=== PATIENT | female | born 1975 | race Caucasian/White ===

== ENCOUNTER → 2019-03-27 | Outpatient (CLI) | payer SELFPAY ==
[~2019-03-27] MED LIST: Bactrim Ds Tab1 EACH PO; CEPH500 PO; Cleocin HCl300 MG PO; HYDACE5 PO; Mupirocin22 GM TOP; NAPR500 PO; Pyridium100 MG PO; SULTRIDS PO; Ultram50 MG PO
== END ==
LOC: LAB 19:41 → LAB SHORT 19:41
DX: J02.9 Acute pharyngitis, unspecified (principal); R06.02 Shortness of breath
CPT/HCPCS: 87081

== ENCOUNTER 2021-10-15 22:48 | Emergency (ER) | payer OTHER ==
[~2021-10-15] VITALS: Ht 167.6 cm; Wt 68.0 kg
[~2021-10-15 22:48] MED LIST changes: +IBUP600 PO
[2021-10-17] MEDS ORDERED: Amoxicillin500 MG PO (14:45)
== END 2021-10-16 00:55 | disposition home or self-care (01) ==
LOC: ER 22:48
DX: S30.860A Insect bite (nonvenomous) of lower back and pelvis, initial encounter (principal); F17.200 Nicotine dependence, unspecified, uncomplicated; F15.11 Other stimulant abuse, in remission; W57.XXXA Bitten or stung by nonvenomous insect and other nonvenomous arthropods, initial encounter; Y92.9 Unspecified place or not applicable
CPT/HCPCS: 10120; 99282; A9270

== ENCOUNTER 2021-10-17 14:32 | Emergency (ER) | payer OTHER ==
[~2021-10-17] VITALS: Ht 170.2 cm; Wt 65.8 kg
[2021-10-17] MEDS ORDERED: Amoxicillin500 MG PO (14:45)
== END 2021-10-17 14:48 | disposition home or self-care (01) ==
LOC: ER 14:32
DX: K04.7 Periapical abscess without sinus (principal); F17.200 Nicotine dependence, unspecified, uncomplicated; Z79.899 Other long term (current) drug therapy
CPT/HCPCS: 99282

== ENCOUNTER 2022-08-05 07:51 | Emergency (ER) | payer OTHER ==
[~2022-08-05] VITALS: Ht 162.6 cm; Wt 69.4 kg
[~2022-08-05 07:51] MED LIST changes: +Amoxicillin500 MG PO
[2022-08-05 08:37] LABS: BASOPHILS ABSOLUTE AUTO 0.13 K/mm3 (0.00-0.23); BASOPHILS PERCENT AUTO 1 % (0-2); EOSINOPHILS PERCENT AUTO 8 % (0-6); Hematocrit 48.2 % (33.0-51.0); Hemoglobin 15.6 g/dL (11.5-16.0); IMMATURE GRAN ABSOLUTE AUTO 0.04 K/mm3 (0.00-0.10); IMMATURE GRAN PERCENT AUTO 0 % (0-1); LYMPHOCYTES PERCENT AUTO 31 % (21-46); MONOCYTES ABSOLUTE AUTO 0.94 K/mm3 (0.16-1.47); MONOCYTES PERCENT AUTO 7 % (4-13); Mean Corpuscular HGB 30.4 pg (26.0-34.0); Mean Corpuscular HGB Conc 32.4 g/dL (31.5-36.5); Mean Corpuscular Volume 94 fL (80-100); Mean Platelet Volume 9.3 fL (9.1-12.4); NEUTROPHILS ABSOLUTE AUTO 7.52 K/mm3 (1.96-9.15); NEUTROPHILS PERCENT AUTO 53 % (41-73); Platelet Count 391 K/mm3 (150-400); RDW Coefficient Variation 13.5 % (11.7-14.2); RDW Standard Deviation 47.2 fL (35.1-46.3); Red Blood Cell Count 5.14 M/mm3 (3.80-5.20); White Blood Cell Count 14.23 K/mm3 (4.00-11.30)
[2022-08-05 08:38] LABS: Base Excess Venous 2.7 mmol/L; Bicarbonate Venous 24.8 mmol/L (24.0-30.0); pH Blood Venous 7.33 (7.34-7.37)
[2022-08-05 08:56] LABS: Albumin, Blood 3.7 g/dL (3.4-5.0); Albumin/Globulin Ratio 0.8 (0.8-1.8); Bilirubin, Total 0.4 mg/dL (0.1-1.0); Bun/Creatinine Ratio 18.5 (12.0-20.0); Calcium, Blood 9.1 mg/dL (8.5-10.1); Creatinine, Blood 0.65 mg/dL (0.40-1.00); Globulin, Blood 4.4 g/dL (2.2-4.0); Potassium, Blood 4.7 mmol/L (3.5-5.5); Total Protein, Blood 8.1 g/dL (6.4-8.2)
[2022-08-05] MEDS ORDERED: PRED20 PO (09:19)
[2022-08-05] MEDS ORDERED: ALBU90OI INH (09:19)
== END 2022-08-05 09:28 | disposition home or self-care (01) ==
LOC: ER 07:51
PROVIDERS: Student in an Organized Health Care Education/Training Program
DX: J45.901 Unspecified asthma with (acute) exacerbation (principal); Z90.710 Acquired absence of both cervix and uterus; F17.200 Nicotine dependence, unspecified, uncomplicated
CPT/HCPCS: 36415; 80053; 82803; 85025; 93005; 93010; 94640; 94664; 99285-25

== ENCOUNTER 2022-11-25 12:51 | Emergency (ER) | payer OTHER ==
[~2022-11-25] VITALS: Ht 167.6 cm; Wt 66.7 kg
[~2022-11-25 12:51] MED LIST changes: +ALBU90OI INH; +PRED20 PO
[2022-11-25 13:03] VITALS: BP 117/95
[2022-11-25] MEDS ORDERED: LIDO700A20 TOP (13:25)
[2022-11-25] MEDS ORDERED: Robaxin750 MG PO (13:25)
[2022-11-25] MEDS ORDERED: IBUP800 PO (13:25)
== END 2022-11-25 13:51 | disposition home or self-care (01) ==
LOC: ER 12:51
DX: M54.42 Lumbago with sciatica, left side (principal); F17.200 Nicotine dependence, unspecified, uncomplicated; Z79.52 Long term (current) use of systemic steroids
CPT/HCPCS: 96372; 99283-25; A9270; J1885

== ENCOUNTER 2023-04-09 17:55 | Emergency (ER) | payer OTHER ==
[~2023-04-09] VITALS: Ht 167.6 cm; Wt 64.4 kg
[~2023-04-09 17:55] MED LIST changes: +IBUP800 PO; +LIDO700A20 TOP; +Robaxin750 MG PO
[2023-04-09 18:38] VITALS: BP 131/103
== END 2023-04-09 20:33 | disposition left against medical advice (07) ==
LOC: ER 17:55
DX: R20.0 Anesthesia of skin (principal); Z53.29 Procedure and treatment not carried out because of patient's decision for other reasons; R20.8 Other disturbances of skin sensation
CPT/HCPCS: 99281

== ENCOUNTER → 2023-06-25 | Outpatient (CLI) | payer OTHER | END | disposition home or self-care (01) | LOC: LAB 09:24 → LAB SHORT 09:24 | DX: N30.01 Acute cystitis with hematuria (principal); R30.0 Dysuria | CPT/HCPCS: 87086 ==

== ENCOUNTER → 2025-03-02 | Outpatient (CLI) | payer OTHER ==
[~2025-03-02] MED LIST changes: +GABAPENTIN250 MG/51; +HYDHCL25 PO
[2025-03-04 21:37] LABS: HSV SUBTYPE SOURCE MOUTH
== END | disposition home or self-care (01) ==
LOC: LAB 11:39 → LAB SHORT 11:39
PROVIDERS: Nurse Practitioner
DX: R30.0 Dysuria (principal)
CPT/HCPCS: 87086; 87529

== ENCOUNTER → 2025-03-29 | Outpatient (CLI) | payer OTHER ==
[2025-03-29 13:06] LABS: Candida Group, PCR NOT DETECTED (NOT DETECT); Candida glabrata-krusei, PCR NOT DETECTED (NOT DETECT)
[2025-03-29 13:57] LABS: Bacterial Vaginosis PCR Positive (NEGATIVE)
== END ==
LOC: LAB SHORT 07:50 → LAB 07:50
PROVIDERS: Nurse Practitioner
DX: N89.8 Other specified noninflammatory disorders of vagina (principal)
CPT/HCPCS: 81515; 87086

== ENCOUNTER → 2025-03-30 | Outpatient (CLI) | payer OTHER ==
[2025-03-30 13:32] LABS: Chlamydia Trachomatis Vaginal NOT DETECTED (NOT DETECT); Neisseria Gonorrhoea Vaginal NOT DETECTED (NOT DETECT)
[2025-04-01 01:21] LABS: RAPID PLASMA REAGIN (RPR) Non Reactive (Non Reactive)
[2025-04-01 07:21] LABS: HIV 1,2 COMBO ANTIGEN/ANTIBODY Negative (Negative)
[2025-04-03 15:20] LABS: TREPONEMA PALLIDUM AB BY TP-PA Non Reactive (Non Reactive)
== END | disposition home or self-care (01) ==
LOC: LAB SHORT 08:30 → LAB 08:30
PROVIDERS: Nurse Practitioner
DX: Z20.2 Contact with and (suspected) exposure to infections with a predominantly sexual mode of transmission (principal)
CPT/HCPCS: 86592; 86780; 87389; 87491; 87591